=== PATIENT | male | born 1975 | race Caucasian/White ===

== ENCOUNTER 2016-05-01 10:12 | Emergency (ER) ==
[2016-05-01 10:14] VITALS: TEMP 97.1
[2016-05-01] MEDS ORDERED: SODIUM CHLORIDE 1,000 ML IV STA ×2 (10:35→12:58)
[2016-05-01 11:00] LABS: BASOPHILS # (AUTO) 0.1 K/uL (0-0.2); BASOPHILS % (AUTO) 0.2 % (0.0-3.0); EOSINOPHILS % (AUTO) 0.1 % (0.0-7.0); HEMATOCRIT 37.6 % (42.0-52.0); HEMOGLOBIN 12.8 g/dl (14.0-18.0); LYMPHOCYTES # (AUTO) 2.4 K/uL (0.60-3.4); LYMPHOCYTES % (AUTO) 8.6 (10.0-50.0); MEAN CORPUSCULAR HEMOGLOBIN 28.6 pg (27.0-31.0); MEAN CORPUSCULAR VOLUME 84.1 fl (80.0-94.0); MONOCYTES # (AUTO) 2.3 K/uL (0.4-2.0); MONOCYTES % (AUTO) 8.1 (0-10); NEUTROPHILS # (AUTO) 22.9 K/ul (2.0-6.9); PLATELET COUNT 356 10^3/uL (140-440); RED BLOOD COUNT 4.47 10^6/ul (4.70-6.10); WHITE BLOOD COUNT 27.93 K/ul (4.2-10.2)
--- NOTE | 2016-05-01 11:16 | DI ---
EXAM: Chest, one-view HISTORY: Cough COMPARISON: 10/26/2015 TECHNIQUE: Single view chest was performed FINDINGS: There is lower airway bronchial wall thickening. There is no focal airspace consolidatio n. There is no pleural effusion or pneumothorax. The heart is normal in size. The mediastinal cont our is normal. There is no acute abnormality of the bones. IMPRESSION: Lower airway thickening may represent reactive airways disease or bronchiolitis. No fo rd airspace consolidation.
[2016-05-01 11:20] LABS: FLU INTERNAL QC INTERNAL QC VALID; RAPID FLU A NEGATIVE (NEGATIVE); RAPID FLU B NEGATIVE (NEGATIVE)
[2016-05-01 11:40] LABS: ALANINE AMINOTRANSFERASE 17 U/L (12-78); ALBUMIN 2.7 g/dL (3.4-5.0); ALBUMIN/GLOBULIN RATIO 0.54; ALKALINE PHOSPHATASE 67 U/L (50-136); ANION GAP 15.3; ASPARTATE AMINO TRANSFERASE 19 U/L (15-37); BILIRUBIN,TOTAL 0.98 mg/dL (0.00-1.20); BLOOD UREA NITROGEN 13 mg/dL (7-18); CALCIUM 9.4 mg/dL (8.2-10.2); CARBON DIOXIDE 24 mmol/L (21-32); CHLORIDE 101 mmol/L (98-107); CREATINE KINASE 44 U/L; CREATININE 0.97 mg/dL (0.60-1.10); GLUCOSE 105 mg/dL (70-100); POTASSIUM 4.3 mmol/L (3.5-5.1); SODIUM 136 mmol/L (136-145); TOTAL PROTEIN 7.7 g/dL (6.4-8.2)
[2016-05-01 11:41] LABS: BILIRUBIN,URINE 1+ (NEGATIVE); KETONES,URINE Trace (NEGATIVE); LEUKOCYTE ESTERASE ,URINE Negative (NEGATIVE); NITRITE,URINE Negative (NEGATIVE); PROTEIN,URINE 2+ (NEGATIVE); URINE, BLOOD 2+ (NEGATIVE)
[2016-05-01 11:44] LABS: ADD URINE MICROSCOPIC YES
[2016-05-01 11:45] LABS: BACTERIA,URINE TRACE (NOT PRESENT)
[2016-05-01 12:04] VITALS: BP 96/71
[2016-05-01] MEDS ORDERED: ZOSYN 3.375 GM 3.375 GM in SODIUM CHLORIDE 100 ML IV STA (12:44)
--- NOTE | 2016-05-01 12:54 | CT ---
EXAM: CT chest abdomen pelvis without contrast HISTORY: Cough, white blood cell count. High COMPARISON: None TECHNIQUE: CT chest abdomen pelvis performed without intravenous contrast. Coronal and sagittal re formatted images obtained. FINDINGS: Thyroid and thoracic inlet appear normal. Heart normal in size. No pericardial effusion . Thoracic aorta normal in caliber. Esophagus appears normal. There are increased number of media stinal lymph nodes. Calcified mediastinal and right hilar lymph nodes, consistent with old granuloma tous disease. Central airway patent. No pneumothorax. Trace right pleural effusion. There is a thick-walled cavitary mass in the right lower lobe with multiple internal areas of cavitation, neha uring up to 5.3 x 3.4 cm. There is surrounding ground-glass infiltrate and surrounding septal thick ening. Soft tissue and small foci of air extends into the subcarinal region, likely related to the s pauly process with soft tissue in the right hilar region also noted, may represent lymphadenopathy, po mayi evaluated without contrast. No free air. Evaluation organ parenchyma limited without contrast. Liver appears normal. Gallbladd er appears normal. Pancreas appears normal. The splenic mass as described on prior CT and ultrasou nd is very poorly characterized and evaluated without contrast. Spleen mildly enlarged. Adrenals a ppear normal. No hydronephrosis, nephrolithiasis. Abdominal aorta normal caliber. Small bilateral fat containing inguinal hernias. Bladder only mildly distended and poorly evaluated, grossly unrem arkable. Prostate normal in size. No abdominal lymphadenopathy or ascites. Abdominal aorta normal in caliber. Small hiatal hernia. No dilated loops small bowel. Appendix appears normal. There i s colonic diverticulosis. No acute abnormalities of the bones. There is degenerative change in the spine. IMPRESSION: 1. Large cavitary mass right lower lobe measuring up to 5.3 cm, suspicious for infectious process/a bscess given high white blood cell count. Atypical infectious etiologies such as tuberculosis not e xcluded. Differential diagnosis includes malignancy. Soft tissue and small foci of air extends in to the subcarinal region, likely related to the same process with soft tissue in the right hilar reg ion also noted, may represent lymphadenopathy. Trace right pleural effusion. Surrounding right low er lobe ground-glass infiltrate and septal thickening, likely related to same process/infection/pneu monia. 2. Mild splenomegaly. Previously described splenic lesion, very poorly visualized without contrast 3. Colonic diverticulosis. 4. Finding #[address] Urbina 12:45 p.m. 05/01/2016.
--- NOTE | 2016-05-01 13:11 | ED.PDOC ---
General ED Provider: Dr. SHERMAN ESTEBAN Chief Complaint: Respiratory Complaint Stated Complaint: cough, weakness Time Seen by Physician: 10:12 Mode of Arrival: Walk-In Information Source: Patient, Family Exam Limitations: No limitations Nursing and Triage Documentation Reviewed and Agree: Yes Miscellaneous Complaint Exam - Complex/Multi-System Complaint/Exam Onset/Duration: ongoing cough and weakness x 1 week Symptoms Are: Still present Initial Severity: Mild Current Severity: Mild Location of Pain: none Associated Signs and Symptoms: Reports: Dizziness, Weakness, Cough. Denies: Decreased responsiveness, Confusion, Agitation, Syncope, Headache, Short of air , Wheezing, Hemoptysis, Chest pain, Palpitations, Edema, Nausea, Vomiting, Diarrhea, Abdominal pain, Back pain, Dysuria, Hematemesis, Melena, Decreased oral intake, Fever, Diaphoresis, Immunocompromised, Anticoagulation Therapy, Recent medication changes, Indwelling medical reviewer, Prior MRSA, Prior VRE, Recent trauma, Remote trauma Recent Echo/LV Function: No Respiratory Distress: None JVD Present: No Tachypnea Present: No Stridor Present: No Abdominal Findings: Present: Normal findings Glascow Coma Scale (see protocol): 15 Meningeal Signs Positive: No Focal Weakness: Present: None Focal Sensory Loss: Present: None Gait: Unable Gag Reflex Present: Yes Babinski Sign: Negative Right, Negative Left Skin Findings: Present: Normal findings Joint Swelling Present: No In-Dwelling Device Present: No Quality Indicators for Cardiac Chest Pain: EKG in 10min. Quality Indicators for AMI: EKG in 10min. Review of Systems - Review Of Systems Constitutional: Reports: Fever, Malaise, Weakness Eyes: Reports: No symptoms Ears, Nose, Mouth, Throat: Reports: No symptoms Respiratory: Reports: Cough Cardiac: Reports: No symptoms GI: Reports: No symptoms : Reports: No symptoms Musculoskeletal: Reports: No symptoms Skin: Reports: No symptoms Neurological: Reports: No symptoms Endocrine: Reports: No symptoms Hematologic/Lymphatic: Reports: No symptoms All Other Systems: Reviewed and Negative Past Medical History - Past Medical History Previously Healthy: Yes Endocrine: Reports: None Cardiovascular: Reports: None Respiratory: Reports: Asthma Hematological: Reports: None Gastrointestinal: Reports: None Genitourinary: Reports: None Neuro/Psych: Reports: None Musculoskeletal: Reports: None Cancer: Reports: None - Surgical History General Surgical History: Reports: None - Family History Family History: Reports: None - Social History Smoking Status: Never smoker Hx Substance Use: No Alcohol Screening: Occasionally Physical Exam - Physical Exam Appearance: Well-appearing, No pain distress, Well-nourished Eyes: YOLY, EOMI, Conjunctiva clear ENT: Ears normal, Nose normal, Oropharynx normal Respiratory: Rhonchi Cardiovascular: RRR, Pulses normal, No rub, No murmur GI/: Soft, Nontender, No masses, Bowel sounds normal, No Organomegaly Musculoskeletal: Normal strength, ROM intact, No edema, No calf tenderness Skin: Warm, Dry, Normal color Neurological: Sensation intact, Motor intact, Reflexes intact, Cranial nerves intact, Alert, Oriented Psychiatric: Affect appropriate, Mood appropriate Interpretation - Radiology Interpretation Radiology Interpretation By: Radiologist (cavitary lesion right lung) Physician Notification - Case Discussed Physician Notified: EDGAR Herndon Time of Notification: 13:13 Admit To: Inpatient Critical Care Note - Critical Care Note Total Time (mins): 0 Course - Course Hematology/Chemistry: 05/01/16 10:50 05/01/16 10:50 Orders, Labs, Meds: Lab Review 05/01/16 05/01/16 05/01/16 10:50 11:27 12:25 WBC 27.93 H RBC 4.47 L Hgb 12.8 L Hct 37.6 L MCV 84.1 MCH 28.6 MCHC 34.0 RDW Coeff of Simeon 13.1 Plt Count 356 Immature Gran % (Auto) 1.0 Neut % (Auto) 82.0 Lymph % (Auto) 8.6 L Rhea % (Auto) 8.1 Eos % (Auto) 0.1 Baso % (Auto) 0.2 Immature Gran # (Auto) 0.3 Neut # 22.9 H Lymph # 2.4 Rhea # 2.3 H Eos # 0.0 Baso # 0.1 D-Dimer 2.82 Sodium 136 Potassium 4.3 Chloride 101 Carbon Dioxide 24 Anion Gap 15.3 BUN 13 Creatinine 0.97 Estimated GFR (MDRD) 86.00 BUN/Creatinine Ratio 13.40 Glucose 105 H Lactic Acid 10.1 Calcium 9.4 Total Bilirubin 0.98 AST 19 ALT 17 Alkaline Phosphatase 67 Total Creatine Kinase 44 Troponin I < 0.0100 B-Natriuretic Peptide 1090 H Total Protein 7.7 Albumin 2.7 L Globulin 5.0 Albumin/Globulin Ratio 0.54 TSH 1.254 Free T4 0.97 Urine Color [place] Urine Clarity Clear Urine pH 6.0 Ur Specific [place] 1.020 Urine Protein 2+ Urine Glucose (UA) Negative Urine Ketones Trace Urine Blood 2+ Urine Nitrite Negative Urine Bilirubin 1+ Urine Urobilinogen 2.0 Ur Leukocyte Esterase Negative Urine Microscopic RBC 2-5 Urine Microscopic WBC 0-2 Ur Squamous Epith Cells Not present Amorphous Sediment Trace Urine Bacteria Trace Hyaline Casts 0-2 Urine Mucus 2+ Influenza A (Rapid) Negative Influenza B (Rapid) Negative Orders Category Date Time Status EKG-(ED ONLY) Stat CARDIO 05/01/16 10:35 Completed ED IV/MEDIPORT/POWERPORT .ONCE EMERGENCY 05/01/16 10:35 Active B-TYPE NATRIURETIC PEPTIDE Stat LAB 05/01/16 10:50 Completed BLOOD CULTURE Stat LAB 05/01/16 10:50 Received CBC W/ AUTO DIFF Stat LAB 05/01/16 10:50 Completed COMPREHENSIVE METABOLIC PANEL Stat LAB 05/01/16 10:50 Completed CREATINE KINASE Stat LAB 05/01/16 10:50 Completed D-DIMER Stat LAB 05/01/16 10:50 Completed FREE T4 (FREE THYROXINE) Stat LAB 05/01/16 10:50 Completed LACTIC ACID Stat LAB 05/01/16 12:25 Completed MOLECULAR GROUP A STREP Stat LAB 05/01/16 10:50 Results RAPID FLU A/B Stat LAB 05/01/16 10:50 Completed STREP SCREEN Stat LAB 05/01/16 10:50 Results THYROID STIMULATING HORMONE Stat LAB 05/01/16 10:50 Completed TROPONIN I Stat LAB 05/01/16 10:50 Completed URINALYSIS C & S IF INDICATED Stat LAB 05/01/16 11:27 Completed 0.9 % Sodium Chloride [Saline Flush] MEDS 05/01/16 10:34 Active 1 syr IVF PRN PRN Piperacillin Sodium/Tazobactam [Zosyn 3.375 gm] 3.375 MEDS 05/01/16 12:44 Active gm 0.9 % Sodium Chloride [Sodium Chloride] 100 ml IV ONCE Sodium Chloride 0.9% [Sodium Chloride] 1,000 ml MEDS 05/01/16 10:35 Active IV 125 mls/hr Sodium Chloride 0.9% [Sodium Chloride] 1,000 ml MEDS 05/01/16 12:58 Active IV 125 mls/hr CHEST, 1V AP ONLY Stat RADS 05/01/16 10:[address] ABDOMEN/PELVIS WO CONTRAST Stat RADS 05/01/16 11:[address] CHEST W/O CONTRAST Stat RADS 05/01/16 11:32 Completed Medications Generic Name Dose Route Start Last Admin Trade Name Freq PRN Reason Stop Dose Admin Sodium Chloride 1,000 mls @ 125 mls/hr 05/01/16 10:35 05/01/16 10:44 Sodium Chloride IV 05/01/16 18:34 125 mls/hr .Q8H STA Administration Piperacillin Sod/Tazobactam 100 mls @ 100 mls/hr 05/01/16 12:44 05/01/16 12: 57 Sod 3.375 gm/ Sodium Chloride IV 05/01/16 13:43 100 mls/hr ONCE STA Administration Sodium Chloride 1,000 mls @ 125 mls/hr 05/01/16 12:58 05/01/16 12:59 Sodium Chloride IV 05/01/16 20:57 125 mls/hr .Q8H STA Administration Sodium Chloride 1 syr 05/01/16 10:34 05/01/16 10:44 Saline Flush IVF 1 syr PRN PRN Administration To flush IV Vital Signs: Temp Pulse Resp BP Pulse Ox 05/01/16 12:03 53 L 24 96/71 95 05/01/16 10:12 97.1 F L 60 20 116/68 95 Departure - Departure Time of Disposition: 13:11 Disposition: HOME SELF-CARE Discharge Problem: Cavitary lesion of lung Instructions: How Your Lungs Work (ED) Condition: Good Pt referred to PMD for follow-up: No Additional Instructions: Please call your Family Physician as soon as possible to schedule a follow-up appointment. Allergies/Adverse Reactions: Allergies No Known Allergies Allergy (Verified 05/01/16 10:17) Home Medications: Ambulatory Orders Albuterol Sulfate 0.083% Neb [Albuterol 0.083% Neb] 1 vial NEB RTQ6H 10/26/15 Disposition Discussed With: Patient, Family
== END 2016-05-01 13:45 | disposition short-term general hospital (02) ==
LOC: ED 10:12
DX: R91.1 Solitary pulmonary nodule (principal); R05 Cough; R53.1 Weakness; R42 Dizziness and giddiness
CPT/HCPCS: 36415; 80053; 80074; 81001; 82550; 83605; 83880; 84439; 84443; 84484; 85025; 85379; 87040; 87651; 87804; 87880; 93005; 93010; 96361; 96365; 99285

== ENCOUNTER 2016-05-01 13:49 | Outpatient (CLI) | END 2016-05-01 13:50 | LOC: AMBL 13:49 | PROVIDERS: ATTEND Internal Medicine | DX: R06.00 Dyspnea, unspecified (principal) ==

== ENCOUNTER 2017-05-08 13:08 | Emergency (ER) ==
[2017-05-08 13:18] VITALS: BP 123/73; TEMP 98; BMI 27.2
--- NOTE | 2017-05-08 15:29 | ED.PDOC ---
General ED Provider: Dr. PHILL PEREZ Chief Complaint: Respiratory Complaint Stated Complaint: Have been experiencing flu symptoms for past 5 days with cough , congestion, body aches, nausea. No emesis or diarrhea. Feels weakened. Developed approximately 5 days ago after his son became ill. Time Seen by Physician: 15:35 Mode of Arrival: Walk-In Information Source: Patient Nursing and Triage Documentation Reviewed and Agree: Yes Reviewed sepsis parameters & appropriate labs ordered?: Yes System Inflammatory Response Syndrome: Not Applicable Sepsis Protocol: For patient's 13 years and over: Temp is 96.8 and below OR 101 and greater Pulse >90 BPM Resp >20/minute Acutely Altered Mental Status Are patient's symptoms suggestive of a new infection, such as: -Pneumonia -Skin, Soft Tissue -Endocarditis -UTI -Bone, Joint Infection -Implantable Device -Acute Abdominal Infection -Wound Infection -Meningitis -Blood Stream Catheter Infection -Unknown System Inflammatory Response Syndrome: Not Applicable Respiratory Complaint Exam - Respiratory Complaint/Exam Symptoms Are: Still present Timing: Intermittent Initial Severity: Moderate Current Severity: Mild Location: Throat, Chest Character: Reports: Non-productive cough Aggravating: Reports: URI Alleviating: Reports: None Associated Signs and Symptoms: Reports: Dyspnea, Chills, Nasal congestion, Hoarseness, Sore throat History of Healthcare-Acquired Pneumonia: No Related Surgical History: Reports: None Pulmonary Embolism Risk Factors: None Cardiac Risk Factors: Reports: None Pseudomonas Risk Factors: Reports: None Tuberculosis Risk Factors: Reports: None Status Asthmaticus Risk Factors: Reports: None Home Oxygen Use: No Current Antibiotic Use: No Current Asthma Medication Use: No Inadequate Respiratory Effort: No Stridor Present: No JVD Present: No Accessory Muscle Use: No Diminished Breath Sounds: No Sinus Tenderness: None Grunting Respirations: No Kussmaul Respirations: No Differential Diagnoses: Influenza Review of Systems - Review Of Systems Constitutional: Reports: Chills, Fever, Malaise, Weakness Eyes: Reports: No symptoms Ears, Nose, Mouth, Throat: Reports: Throat pain Respiratory: Reports: Cough, Short of air, Wheezing Cardiac: Reports: No symptoms GI: Reports: No symptoms : Reports: No symptoms Musculoskeletal: Reports: No symptoms Skin: Reports: No symptoms Neurological: Reports: No symptoms, Anxiety, Depressed, Emotional problems Endocrine: Reports: No symptoms Hematologic/Lymphatic: Reports: No symptoms All Other Systems: Reviewed and Negative Past Medical History - Past Medical History Previously Healthy: Yes Endocrine: Reports: None Cardiovascular: Reports: None Respiratory: Reports: Asthma Hematological: Reports: None Gastrointestinal: Reports: None Genitourinary: Reports: None Neuro/Psych: Reports: None Musculoskeletal: Reports: None Cancer: Reports: None - Surgical History General Surgical History: Reports: None - Family History Family History: Reports: None - Social History Smoking Status: Never smoker Hx Substance Use: No Alcohol Screening: Occasionally Physical Exam - Physical Exam Appearance: Ill-appearing Ill-appearing: Moderate Pain Distress: None Eyes: YOLY, EOMI, Conjunctiva clear ENT: Ears normal, Nose normal, Erythema Neck: Supple Respiratory: Airway patent, Wheezes Cardiovascular: RRR, Pulses normal GI/: Soft, Nontender, No masses Musculoskeletal: Normal strength, ROM intact, No edema, No calf tenderness Skin: Warm, Dry, Normal color Neurological: Sensation intact, Motor intact, Alert, Oriented Psychiatric: Affect appropriate, Mood appropriate Re-Evaluation - Re-Evaluation Time of Re-Evaluation: 16:30 Status: Improved Vital Signs Stable: Yes Appearance: NAD Lungs: Clear Skin: Warm and Dry Neuro: Alert and Oriented X3 CV: RRR Critical Care Note - Critical Care Note Total Time (mins): 0 Course - Course Hematology/Chemistry: 05/08/17 15:38 05/08/17 15:38 Orders, Labs, Meds: Lab Review 05/08/17 05/08/17 05/08/17 15:29 15:34 15:38 WBC 11.21 H RBC 4.81 Hgb 14.1 Hct 40.7 L MCV 84.6 MCH 29.3 MCHC 34.6 RDW Coeff of Simeon 13.2 Plt Count 250 Immature Gran % (Auto) 0.2 Neut % (Auto) 59.3 Lymph % (Auto) 31.7 Saline % (Auto) 7.7 Eos % (Auto) 0.8 Baso % (Auto) 0.3 Immature Gran # (Auto) 0.0 Neut # 6.7 Lymph # 3.6 H Saline # 0.9 Eos # 0.1 Baso # 0.0 Sodium Potassium Chloride Carbon Dioxide Anion Gap BUN Creatinine Estimated GFR (MDRD) BUN/Creatinine Ratio Glucose Calcium Total Bilirubin AST ALT Alkaline Phosphatase Total Protein Albumin Globulin Albumin/Globulin Ratio Procalcitonin Urine Color Yellow Urine Clarity Clear Urine pH 6.5 Ur Specific [place] 1.020 Urine Protein 1+ Urine Glucose (UA) Negative Urine Ketones 1+ Urine Blood Trace-intact Urine Nitrite Negative Urine Bilirubin 1+ Urine Urobilinogen >=8.0 Ur Leukocyte Esterase Negative Urine Microscopic RBC 2-5 Ur Squamous Epith Cells Not present Urine Mucus 4+ Influenza A (Rapid) Negative by naat Influenza B (Rapid) Positive by naat H 05/08/17 05/08/17 15:38 15:38 WBC RBC Hgb Hct MCV MCH MCHC RDW Coeff of Simeon Plt Count Immature Gran % (Auto) Neut % (Auto) Lymph % (Auto) Saline % (Auto) Eos % (Auto) Baso % (Auto) Immature Gran # (Auto) Neut # Lymph # Saline # Eos # Baso # Sodium 138 Potassium 4.5 Chloride 100 Carbon Dioxide 28 Anion Gap 14.5 BUN 15 Creatinine 0.89 Estimated GFR (MDRD) 94.00 BUN/Creatinine Ratio 16.85 Glucose 80 Calcium 9.4 Total Bilirubin 0.7 AST 19 ALT 13 Alkaline Phosphatase 64 Total Protein 7.9 Albumin 3.3 L Globulin 4.6 Albumin/Globulin Ratio 0.72 Procalcitonin 0.07 Urine Color Urine Clarity Urine pH Ur Specific [place] Urine Protein Urine Glucose (UA) Urine Ketones Urine Blood Urine Nitrite Urine Bilirubin Urine Urobilinogen Ur Leukocyte Esterase Urine Microscopic RBC Ur Squamous Epith Cells Urine Mucus Influenza A (Rapid) Influenza B (Rapid) Orders Category Date Time Status NEBULIZER TREATMENT Stat CARDIO 05/08/17 15:31 Completed CBC W/ AUTO DIFF Stat LAB 05/08/17 15:38 Completed CMP [COMPREHENSIVE METABOLIC PANEL] Stat LAB 05/08/17 15:38 Completed FLU A & B MOLECULAR [FLU A/B MOLECULAR] Stat LAB 05/08/17 15:34 Completed PROCALCITONIN Stat LAB 05/08/17 15:38 Completed RAPID STREP SCREEN [MOLECULAR GROUP A STREP] Stat LAB 05/08/17 15:34 Completed UA [URINALYSIS C & S IF INDICATED] Stat LAB 05/08/17 15:29 Completed Levalbuterol HCl [Xopenex 1.25 mg] MEDS 05/08/17 15:30 Discontinued 1 vial NEB ONCE STA CHEST, 2 VIEWS PA & LAT Stat RADS 05/08/17 15:29 Completed Medications Discontinued Medications Generic Name Dose Route Start Last Admin Trade Name Freq PRN Reason Stop Dose Admin Levalbuterol HCl 1 vial 05/08/17 15:30 05/08/17 15:44 Xopenex 1.25 Mg NEB 05/08/17 15:31 1 vial ONCE STA Administration Vital Signs: Temp Pulse Resp BP Pulse Ox 05/08/17 13:13 98.0 F 100 H 20 123/73 96 Departure - Departure Time of Disposition: 16:40 Disposition: HOME SELF-CARE Discharge Problem: Influenza B Condition: Fair Pt referred to PMD for follow-up: Yes (4-5 days) IPMP verified?: No Additional Instructions: Take all meds as directed including including Robitusin DM 2 tsp every four hours as needed Tylenol or Ibuprofen for temp elevation >101 deg F or pain May take cough and cough meds as needed Follow up PCP in next week May return to work next Friday Return to ER if worsens Allergies/Adverse Reactions: Allergies No Known Allergies Allergy (Verified 05/08/17 13:17) Home Medications: Ambulatory Orders Albuterol Sulfate 0.083% Neb [Albuterol 0.083% Neb] 1 vial NEB RTQ6H 10/26/15 Disposition Discussed With: Patient
[2017-05-08] MEDS ORDERED: XOPENEX 1.25 MG NEB STA (15:30)
--- NOTE | 2017-05-08 15:58 | DI ---
Exam: Chest two-view HISTORY: Wheezing. Comparison: 05/01/2016. FINDINGS: Two views of the chest demonstrate moderately expanded lungs with no evidence of pneumonia or edema. The heart is normal in size and configuration. The pulmonary vasculature is not congeste d. The skeletal structures are intact. IMPRESSION: No acute cardiopulmonary disease.
== END 2017-05-08 16:52 | disposition home or self-care (01) ==
LOC: ED 13:08
DX: J10.1 Influenza due to other identified influenza virus with other respiratory manifestations (principal)
CPT/HCPCS: 36415; 80053; 81001; 84145; 85025; 87502; 87651; 94640; 99283